=== PATIENT | female | born 1960 | race Caucasian/White ===

== ENCOUNTER → 2016-09-23 | Outpatient (CLI) | payer OTHER ==
--- NOTE | ~2016-09-23 | MY11 ---
[facility] A Service [facility] RADIOLOGY TEXT RESULTS PATIENT: MAYDA ESPINOSA LOCATION: [facility] : 58 UNIT #: [id number] AGE: [address]: GRZEGORZ ZARAGOZA PA-C SEX: F ORDER DR: [id number] [address] [id number] O MR#: [id number] Acc #: [id number] NAME: MAYDA ESPINOSA : 1960 SEX: F STUDY DATE/TIME: 09/23/2016 9:41 UNIT: [facility] ROOM: STUDY DESCRIPTION: MY Mammogram Screening Dig Rojelio Attending Physician: Grzegorz Zaragoza Pa-C Referring Physician: Grzegorz Zaragoza Pa-C Ordering Physician: Charles Nicolas M.D. Primary Care Physician: Grzegorz Zaragoza Pa-C MEDICAL IMAGING REPORT This report is preliminary unless electronic signature is present. EXAM Bilateral digital screening mammogram with CAD 09/23/2016 INDICATION 56-year-old female for routine screening. No reported problems. No personal history of breast cancer. Family history positive in the patient's sister at 53. No surgeries. TECHNIQUE CC and MLO views of the breasts were obtained and reviewed with an FDA-approved CAD device. COMPARISON 07/06/2015, 10/17/2013, 08/30/2011. FINDINGS Breast parenchyma is composed of heterogeneously dense breast tissue. The pattern is unchanged. There is no new dominant nodule, mass or suspicious cluster of microcalcifications. IMPRESSION Negative screening mammogram. 1 year followup recommended. Patients over the age of 40 are entered into a reminder system with target due date for the next mammogram. A result letter will also be sent to the patient. BIRADS: 1 Negative Dictated by... [facility] A [facility] RADIOLOGY TEXT RESULTS PATIENT: MAYDA ESPINOSA LOCATION: [facility] : 58 UNIT #: [id number] AGE: [address]: GRZEGORZ ZARAGOZA PA-C SEX: F ORDER DR: Marc Caicedo M.D. THIS IS AN ELECTRONICALLY VERIFIED REPORT Marc Caicedo M.D. at 09/23/2016 4:50 PM MARCO/ronen TD: 09/23/2016 12:54 JOB #: [id number] MEDICAL IMAGING REPORT Page 1 of 1
== END | disposition home or self-care (01) ==
LOC: SMAM 08:42
DX: Z12.31 Encounter for screening mammogram for malignant neoplasm of breast (principal); Z80.3 Family history of malignant neoplasm of breast
CPT/HCPCS: G0202